=== PATIENT | female | born 1960 | race Caucasian/White ===

== ENCOUNTER → 2018-06-29 | Outpatient (CLI) | payer BC | END | disposition home or self-care (01) | LOC: PCVCCLINIC 11:52 | PROVIDERS: ATTEND Internal Medicine | DX: E78.5 Hyperlipidemia, unspecified (principal); R06.02 Shortness of breath; R07.9 Chest pain, unspecified; F17.210 Nicotine dependence, cigarettes, uncomplicated; F12.90 Cannabis use, unspecified, uncomplicated; Z88.8 Allergy status to other drugs, medicaments and biological substances; Z72.89 Other problems related to lifestyle | CPT/HCPCS: 36415; 80061 ==

== ENCOUNTER → 2018-09-02 | Outpatient (CLI) | payer BC ==
[~2018-09-02] MED LIST: REGADENOSON 0.4 MG/5 ML DISP.SYRIN. IV ONE
--- NOTE | 2018-09-02 09:46 | PCVCIMAG ---
APPROVED REPORT Study performed: 09/02/2018 08:08:54 EXAM: Comprehensive 2D, Doppler, and color-flow Echocardiogram Patient Location: Echo lab Status: routine BSA: 2.15 HR: 100 bpmBP: 116/64 mmHg Rhythm: Tachycardia Other Information Study Quality: Adequate Indications Dyspnea Palpitations Chest Pain 2D Dimensions IVSd: 12.45 (7-11mm) LVDd: 39.41 mm PWd: 10.03 (7-11mm) LVDs: 29.89 (25-40mm) Left Atrium: 31.20 (27-40mm) Aortic Root: 31.54 mm LV Single Plane 4CH: 53.27 % LV Single Plane 2CH: 51.93 % Biplane EF: 51.8 % Volumes Left Atrial Volume (Systole) Single Plane 4CH: 37.71 mLSingle Plane 2CH: 43.17 mL LA ESV Index: 19.00 mL/m2 Aortic Valve AoV Peak Alex.: 1.12 m/s AO Peak Gr.: 4.98 mmHgLVOT Max P.22 mmHg LVOT Max V: 0.90 m/s Mitral Valve E/A Ratio: 0.7 MV Decel. Time: 354.32 ms MV E Max Alex.: 0.51 m/s MV A Alex.: 0.69 m/s IVRT: 114.19 ms Pulmonary Valve PV Peak Alex.: 0.76 m/sPV Peak Gr.: 2.30 mmHg Pulmonary Vein P Vein S: 0.34 m/sP Vein A: 0.28 m/s P Vein D: 0.42 m/sP Vein A Dur.: 117.6 msec P Vein S/D Ratio: 0.81 Tricuspid Valve TR Peak Alex.: 2.76 m/s TR Peak Gr.: 30.43 mmHg TV Vmax: 0.44 m/s Left Ventricle The left ventricle is normal size. There is normal LV segmental wall motion. There is normal left ventricular wall thickness. Left ventricular systolic function is normal. The left ventricular ejection fraction is within the lower limits of normal range. LVEF is 50-55%. Grade I - abnormal relaxation pattern. Right Ventricle The right ventricle is normal size. The right ventricular systolic function is normal. Atria The left atrium size is normal. The right atrium size is normal. Aortic Valve The aortic valve is normal in structure. No aortic regurgitation is present. There is no aortic valvular stenosis. Mitral Valve The mitral valve is normal in structure. There is no mitral valve regurgitation noted. No evidence of mitral valve stenosis. Tricuspid Valve The tricuspid valve is normal in structure. Trace tricuspid regurgitation with PAP of 37 mmHg. Pulmonic Valve The pulmonary valve is normal in structure. There is no pulmonic valvular regurgitation. Great Vessels The aortic root is normal in size. IVC is normal in size and collapses >50% with inspiration. Pericardium There is no pericardial effusion. There is no pleural effusion. <Conclusion> The left ventricle is normal size. LVEF is 50-55%. The aortic valve is normal in structure. The mitral valve is normal in structure. The tricuspid valve is normal in structure. Trace tricuspid regurgitation with PAP of 37 mmHg. The pulmonary valve is normal in structure. There is no pericardial effusion. There is no pleural effusion.
--- NOTE | 2018-09-03 12:12 | PCVCIMAG ---
APPROVED REPORT Imaging Protocol: Rest Tc-99m/Stress Tc-99m 1 day Study performed: 09/02/2018 09:36:44 Indication: Chest pain, Fatigue, Dyspnea, Palpitations Patient Location: Out-Patient Stress Nurse: Kaela Gregory RN [place] Tech:Luna Kaplan [facility] Ht: 5 ft 10 in Wt: 209 lbs BSA: 2.13 m2 HR: 96 bpm BP: 121/81 mmHg BMI: 29.98 Rhythm: Normal Sinus Rhythm Medical History Medical History: Current Smoker Medications: No cardiac meds Allergies: NSAIDS, ASA Cardiac Risk Factors: Age Pretest Chest Pain Characteristics: No chest pain Exercise History: Physically active Resting Data Rest SPECT myocardial perfusion imaging was performed in supine position 45 minutes following the intravenous injection of 10.2 mCi of Tc-99m Sestamibi. Time of rest injection: 0900 Date: 09/02/2018 Administration Route: IV Administration Site: Right AC Pharmacologic Stress Pharmacologic stress test was performed by injecting Regadenoson 0.4 mg IV push over 10-15 seconds immediately followed by the intravenous injection of 33.9 mCi of Tc-99m Sestamibi. Time of stress injection: 1040 Date: 09/02/2018 Administration Route: IV Administration Site: Right AC Gated Stress SPECT was performed 45 minutes after stress injection. The images were gated to evaluate regional wall motion and calculate left ventricular ejection fraction. Stress Test Details Stress Test: Pharmacologic stress testing performed using 0.4 mg of regadenoson per 5 mL given IV over 10 seconds. Reason for pharmacologic stress test: uses a cane. HRMax Heart Rate (APMHR): 164 bpm Resting HR: 96 bpmTarget HR (85% APMHR): 139 bpm Max HR Achieved: 122 bpm % of APMHR: 74 Recovery HR: 113 bpm BP Resting BP: 121/81 mmHg Max BP: 106/68 mmHg Recovery BP: 108/63 mmHg ECG Resting ECG: Normal Sinus Rhythm Stress ECG: Sinus Tachycardia Recovery ECG: Sinus Tachycardia Clinical Reason for Termination: Completed protocol Stress Symptoms: Dyspnea, Chest pain Exercise duration: 0 min 55 sec Symptoms resolved with caffeine. Stress ECG Conclusion 1. Adequate response to intravenous Lexiscan 2. Inadequate heart rate for ECG diagnosis Study Data Post stress, the left ventricular ejection was 83%.. SSS: 0 SRS: 2 SDS: 0 TID = 0.82. Perfusion There is a medium area of moderately reduced uptake in the mid and apical segment of the inferior wall which is seen on the stress images as well as the resting images. This area thickens and moves normally and is most consistent with attenuation artifact. Nuclear Conclusion ECG Findings: non-diagnostic Clinical Findings: negative for ischemia Nuclear Findings: negative for ischemia Exercise Capacity: not assessed Left Ventricular Function: normal 1. Low risk study <Conclusion> 1. Adequate response to intravenous Lexiscan 2. Inadequate heart rate for ECG diagnosis
== END | disposition home or self-care (01) ==
LOC: PCVCIMAG 08:16
PROVIDERS: ATTEND Internal Medicine
DX: R00.2 Palpitations (principal); R07.9 Chest pain, unspecified; R06.00 Dyspnea, unspecified; R53.83 Other fatigue
CPT/HCPCS: 78452; 93017; 93306; A9500; J2785